=== PATIENT | female | born 1990 | race Caucasian/White ===

== ENCOUNTER 2017-03-20 20:59 | Emergency (ER) | payer OTHER ==
[2017-03-20 21:24] VITALS: BP 114/60; PULSE 67; TEMP 98.2; BMI 28.3
--- NOTE | 2017-03-20 22:15 | PDOC ---
History of Present Illness - General Chief Complaint: Pain Stated Complaint: PAIN, ACUTE Time Seen by Provider: 03/20/17 22:10 - History of Present Illness Initial Comments: 03/20/17 22:38 Patient is a 26 with no PMH who presents with abdominal cramping. The patient reports that she is 5-6 weeks but is unsure given that her menstrual period is irregular and she does not know her LMP. She does report positive test and had a beta quant earlier today at L&D that was 2700. She reports LLQ abdominal cramping beginning 2 days ago without relief prompting her presentation to the ED today at the recommendation of her frame opener physician. She states that she has not had this in the past with her previous pregnancies which were uncomplicated. She denies any abnormal vaginal discharge or bleeding and denies fevers, chills, SOB, chest pain , or changes with urination or bowel movements. Past History - Past Medical History Allergies/Adverse Reactions: Allergies Allergy/AdvReac Type Severity Reaction Status Date / Time shellfish derived Allergy Intermediate Hives Verified 03/20/17 21:19 seafood Allergy Intermediate Hives Uncoded 07/03/15 11:29 Home Medications: Ambulatory Orders Amoxicillin/Potassium Clav [Augmentin 875-125 Tablet] 1 each PO BID #14 tablet 07/03/15 Ibuprofen [Motrin -] 600 mg PO QID #30 tablet 07/03/15 Nitrofurantoin Macrocrystal [Nitrofurantoin] 100 mg PO BID #14 capsule 03/21/17 Asthma: No Cancer: No Cardiac Disorders: No Diabetes: No HTN: No Psychiatric Problems: Yes (ANXIETY) Suicide Attempt (Hx): No Seizures: No Thyroid Disease: No - Reproductive History (#): 1 Para: 1 Cervical CA: No Dysfunctional Uterine Bleeding: No Ectopic : No Endometrial CA: No Polycystic Ovaries: No Spontaneous : 1 - Immunization History Immunization Up to Date: No - Psycho/Social/Smoking Cessation Hx Anxiety: Yes Suicidal Ideation: No Smoking Status: Yes Smoking History: Never smoked Have you smoked in the past 12 months: No Number of Cigarettes Smoked Daily: 0 Information on smoking cessation initiated: No Hx Alcohol Use: No Drug/Substance Use Hx: No Substance Use Type: None Hx Substance Use Treatment: No Review of Systems - Review of Systems Constitutional: No: Chills, Fever Respiratory: No: Cough, Shortness of Breath Cardiac (ROS): No: Chest Pain, Lightheadedness, Palpitations ABD/GI: No: Constipated, Diarrhea, Nausea, Vomiting : No: Burning, Dysuria, Discharge Integumentary: No: Rash Neurological: No: Headache, Numbness, Tingling, Weakness *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 - Vital Signs Last Vital Signs Temp Pulse Resp BP Pulse Ox 98.2 F 67 20 114/60 100 03/20/17 21:20 03/20/17 21:20 03/20/17 21:20 03/20/17 21:20 03/20/17 21:20 - 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 Comments: 03/20/17 22:46 General Appearance: Nourished. No Apparent Distress Respiratory/Chest: Lungs Clear, Normal Breath Sounds. No Crackles, Rales, Rhonchi, Wheezing Cardiovascular: Regular Rhythm, Regular Rate. No Murmur, Gallop/S3, Gallop/S4 Female Pelvic Exam: normal external exam, cervical os closed, normal adnexa. No CMT, adnexal tenderness, vaginal bleeding Gastrointestinal/Abdominal: Normal Bowel Sounds, Soft, Mild LLQ tenderness to palpation on exam. No Guarding, Rebound Extremity: Normal Capillary Refill Integumentary: Normal Color, Dry, Warm Neurologic: Fully Oriented, Alert, Normal Mood/Affect, Normal Response ED Treatment Course - LABORATORY CBC & Chemistry Diagram: 03/20/17 22:48 03/20/17 22:48 Medical Decision Making - Medical Decision Making 03/20/17 22:47 Patient is a 26 with no PMH who presents with abdominal cramping. Differential includes but is not limited to: Round ligament pain, ovarian cyst, ectopic, torsion, UTI, metabolic derangement, infectious. Given the patient's normal exam and history, it is likely that her cramping is due to normal round ligament pain. However we will evaluate for other etiologies with a cbc, cmp, UA. Patient has had a type and screen in the past. She had a beta quant today that was 2700 so we will not send another and send her for a transvaginal US for evaluation. 03/21/17 00:12 CBC demonstrates an elevated wbc to 12.4. CMP is unremarkable. UA demonstrates a 3+ positive leuk esterase concerning for UTI. US is unremarkable for any abnormal pathology as read by our radiologist. Her symptoms are likely due to a UTI. We will send a prescription for nitroferatoin BID to treat and have her follow up with her construction project mgr or PCP. We discussed the results with the patient and the plan. The patient voiced understanding and is agreeable with the plan. *DC/Admit/Observation/Transfer Diagnosis at time of Disposition: UTI (urinary tract infection) Qualifiers: Urinary tract infection type: site unspecified Hematuria presence: without hematuria Qualified Code(s): N39.0 - Urinary tract infection, site not specified - Discharge Dispostion Disposition: HOME Condition at time of disposition: Good Admit: No - Prescriptions Prescriptions: Nitrofurantoin Macrocrystal [Nitrofurantoin] 100 mg PO BID #14 capsule - Patient Instructions Printed Discharge Instructions: DI for Urinary Tract Infection (UTI) Additional Instructions: Please return to the ER if you experience concerning or worsening symptoms including fevers or chills. Please follow up with your construction project mgr physician or primary care provider to discuss your ER visit. We have prescribed antibiotics for a urinary tract infection that you should take twice a day for 7 days.
--- NOTE | 2017-03-20 22:37 | PDOC ---
Attending Attestation - Resident Resident Name: Tejinder Hutchins - ED Attending Attestation I have performed the following: I have examined & evaluated the patient, The case was reviewed & discussed with the resident, I agree w/resident's findings & plan, Exceptions are as noted - HPI HPI: 03/21/17 00:08 26yo at 5 weeks presents for eval of lower abd cramping. No n/v/d. No vaginal bleeding, discharge, itching, burning, pain. Pt states urinary freq, but not dysuria. Pt denies f/c. No cp/sob. No cough. No rashes. States mild low back pain. No other complaints. Pt states cramping started 2 days ago. She had seen her SECURITY AMBASSADOR for this and is taking vitamins. No other complaints. 03/21/17 00:12 - Physicial Exam PE: 03/21/17 00:54 Gen: aaox3, nad Head: nc/at Heent: mmm, eomi neck: supple heart: reg lungs: cta abd: soft, nt/nd +bs Ext: no c/c/e - Medical Decision Making 03/20/17 22:28 I, Dr. Cammy Zambrano, DO, attest that this document has been prepared under my direction and personally reviewed by me in its entirety. I further attest, that it accurately reflects all work, treatment, procedures and medical decision -making performed by me. 03/21/17 00:10 26yo female with pelvic cramping, +preg -outpt hcg today was >2700 -type and screen was O+ -will check labs, ua, pelvic ob ultrasound to r/o ectopic. 03/21/17 00:11 re-eval: discussed labs results. will give abx for uti. recommended pt have repeat beta hcg in 48 hours. Recommended pt have repeat u/s in 1-2 weeks. Pt will follow up with her FIELD ASSESSOR. Discussed all reasons to return to the ED and need for follow up . Answered all questions.
[2017-03-20 22:59] LABS: EOSINOPHIL 2.4 % (0-4.5); MCH 32.3 pg (25.7-33.7); MCHC 34.5 g/dl (32.0-36.0); MEAN CELL VOLUME 93.6 fl (80-96); MEAN PLT VOLUME 9.3 fl (7.5-11.1); NEUTROPHILS 56.4 % (42.8-82.8); PLATELET COUNT 263 K/MM3 (134-434); RDW 12.5 % (11.6-15.6); WHITE BLOOD COUNT 12.4 K/mm3 (4.0-10.0)
[2017-03-20 23:09] LABS: URINE APPEARANCE SLCLOUDY; URINE BILIRUBIN NEGATIVE (NEGATIVE); URINE BLOOD NEGATIVE (NEGATIVE); URINE COLOR LTYELLOW; URINE GLUCOSE (UA) NEGATIVE (NEGATIVE); URINE KETONE NEGATIVE (NEGATIVE); URINE NITRITE NEGATIVE (NEGATIVE); URINE PROTEIN NEGATIVE (NEGATIVE); URINE UROBILINOGEN NEGATIVE mg/dL (0.2-1.0)
[2017-03-20 23:13] LABS: URINE LEUK ESTERASE 3+ (NEGATIVE)
[2017-03-20 23:15] LABS: CALCIUM OXALATE CRYSTALS RARE /hpf (NONE SEEN); URINE MUCUS RARE; URINE RBC 2 /hpf (0-3); URINE WBC 17 /hpf (3-5)
[2017-03-20 23:28] LABS: ALBUMIN 3.5 g/dl (3.4-5.0); ALK PHOS 83 U/L (45-117); ANION GAP 10 (8-16); BILIRUBIN,TOTAL 0.1 mg/dL (0.2-1.0); CALCIUM 8.5 mg/dL (8.5-10.1); CO2 26 mmol/L (21-32); CREATININE 0.5 mg/dL (0.55-1.02); GLUCOSE,RANDOM 90 mg/dL (74-106); SGOT/AST 12 U/L (15-37); SGPT/ALT 28 U/L (12-78); TOT PROT 6.5 g/dl (6.4-8.2)
== END 2017-03-21 00:18 | disposition home or self-care (01) ==
LOC: JER 20:59
DX: O23.41 Unspecified infection of urinary tract in pregnancy, first trimester (principal); Z3A.01 Less than 8 weeks gestation of pregnancy
CPT/HCPCS: 36415; 76817-TC; 80053; 81003; 81015; 84703; 85025; 99282-25

== ENCOUNTER 2017-11-14 09:37 | Inpatient (IN) | payer OTHER ==
[2017-11-14] MEDS ORDERED: AMPICILLIN SODIUM 2 GM VIAL ONE (10:18)
[2017-11-14] MEDS ORDERED: AMPICILLIN - 2 GM in SODIUM CHLORIDE 100 ML IVPB ONE (11:00)
[2017-11-14] MEDS ORDERED: DEXTROSE 5%-LACTATED RINGERS 1,000 ML IV SCH (11:00)
[2017-11-14 11:12] VITALS: BMI 35.4
[2017-11-14 11:22] LABS: BASO % 0.3 % (0-2.0); EOS % 0.5 % (0-4.5); HEMATOCRIT 35.7 % (32.4-45.2); HEMOGLOBIN 12.3 GM/dL (10.7-15.3); LYMPH % 13.6 % (8-40); MCH 32.9 pg (25.7-33.7); MCHC 34.5 g/dl (32.0-36.0); MEAN CELL VOLUME 95.1 fl (80-96); MONO % 5.1 % (3.8-10.2); NEUT % 80.5 % (42.8-82.8); PLATELET COUNT 195 K/MM3 (134-434); RBC 3.75 M/mm3 (3.60-5.2); RDW 12.8 % (11.6-15.6); WHITE BLOOD COUNT 12.4 K/mm3 (4.0-10.0)
[2017-11-14 11:50] LABS: ANION GAP 6 (8-16); BLOOD UREA NITROGEN 7 mg/dL (7-18); CALCIUM 8.8 mg/dL (8.5-10.1); CHLORIDE 106 mmol/L (98-107); CO2 26 mmol/L (21-32); CREATININE 0.6 mg/dL (0.55-1.02); GLUCOSE,RANDOM 117 mg/dL (74-106); POTASSIUM 3.9 mmol/L (3.5-5.1); SODIUM 138 mmol/L (136-145)
[2017-11-14 11:52] LABS: INR 0.96 (0.82-1.09); PROTHROMBIN TIME (PATIENT) 10.9 SEC (9.7-13.0)
--- NOTE | 2017-11-14 14:14 | HP ---
Past Medical History - Primary Care Physician PCP:: Niya Light - Admission Chief Complaint: 27yo P 1102 @ 38.4 wks with ctxns History of Present Illness: 1. GBS positive for Abx in labor 2. h/o PTL on Nicole last and this 3. Shell fish Allergy 4. Former Smoker History Source: Patient, Medical Record Limitations to Obtaining History: No Limitations - Past Medical History ...: 7 ...Para: 2 ...Term: 1 ...: 1 ...Spon : 1 ...Induced : 3 ...LMP: 02/18/17 ... Weeks Gestation by Dates: 38.2 ...EDC by Dates: 11/25/17 ...EDC by Sono: 11/18/17 - Past Surgical History Past Surgical History: Yes: None Hx Myomectomy: No Hx Transabdominal Cerclage: No Additional Surgical History: Nose septoplasty - Smoking History Smoking history: Never smoked Have you smoked in the past 12 months: No Aproximately how many cigarettes per day: 0 - Alcohol/Substance Use Hx Alcohol Use: No Home Medications - Allergies Allergies/Adverse Reactions: Allergies Allergy/AdvReac Type Severity Reaction Status Date / Time shellfish derived Allergy Intermediate Hives Verified 11/14/17 10:32 seafood Allergy Intermediate Hives Uncoded 11/14/17 10:32 - Home Medications Home Medications: Ambulatory Orders Vit/Iron Fum/Folic AC [ Tablet] 1 tab PO DAILY 11/14/17 Review of Systems - Review of Systems Constitutional: reports: No Symptoms Eyes: reports: No Symptoms HENT: reports: No Symptoms Neck: reports: No Symptoms Cardiovascular: reports: No Symptoms Respiratory: reports: No Symptoms Gastrointestinal: reports: No Symptoms Genitourinary: reports: No Symptoms Breasts: reports: No Symptoms Reported Musculoskeletal: reports: No Symptoms Integumentary: reports: No Symptoms Neurological: reports: No Symptoms Endocrine: reports: No Symptoms Hematology/Lymphatic: reports: No Symptoms Psychiatric: reports: No Symptoms 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 - Maternity Vital Signs: Vital Signs Temperature 98.5 F 11/14/17 14:00 Pulse Rate 76 11/14/17 14:00 Respiratory Rate 18 11/14/17 14:00 Blood Pressure 133/78 11/14/17 14:00 O2 Sat by Pulse Oximetry (%) Constitutional: Yes: Well Nourished Eyes: Yes: WNL, Conjunctiva Clear, EOM Intact HENT: Yes: WNL Neck: Yes: WNL, Supple, Trachea Midline Cardiovascular: Yes: WNL, Regular Rate and Rhythm Lungs: Clear to auscultation Breast(s): Yes: WNL - Abdominal Exam/OB Fundal Height: 38 (7lb) Number of Fetuses: Single Presentation: Vertex Contractions: Yes Regularity: Irregular (Q3-5min) Intensity: Mild/Mod Monitor Mode: External Heart Rate (range): 140 Heart Rate Location: Midline Category: I Accelerations: Uniform Decelerations: None - Vaginal Exam/OB Vaginal Bleediing: No Speculum Exam: No Dilatation (cm): 6-7 Effacement (%): 75 Amniotic Membrane Status: Intact Presentation: Vertex/Position Station: -3 - 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 Musculoskeletal: Yes: WNL Extremities: Yes: WNL Edema: No Integumentary: Yes: WNL ...Motor Strength: WNL Psychiatric: Yes: WNL - Labs Lab Results: CBC, BMP 11/14/17 11:00 11/14/17 11:00 Assessment/Plan 27yp P2 with advanced dilation, in early labor MF status reassuring Ampicillin 2gr x dose given and patient experienced itching, will deem Allergic to PCN Vancomycin ordered for GBS prophylaxis - 1gm slow drip She declines pain meds Will augment with AROM and slow Pitocin once Vancomycin is given
[2017-11-14] MEDS ORDERED: OXYTOCIN 20 UNITS in 0.9% NS 20 UNIT/1,000 ML INFUS.BAG IV ONE ×2 (14:19→20:14)
[2017-11-14] MEDS ORDERED: VANCOMYCIN 1,000 MG in DEXTROSE 5%-WATER - 250 ML IVPB SCH (14:30)
[2017-11-14] MEDS ORDERED: OXYTOCIN 15 UNITS/ LR 250 ML 15 UNIT/250 ML INFUS.BAG IVPB SCH (14:30)
[2017-11-14] MEDS ORDERED: VANCOMYCIN 1,000 MG in DEXTROSE 5%-WATER - 250 ML IVPB ONE (14:30)
[2017-11-14] MEDS ORDERED: OXYTOCIN 30 UNITS in 0.9% NS 30 UNIT/500 ML INFUS.BAG IVPB SCH (14:38)
--- NOTE | 2017-11-14 16:27 | PN ---
Progress Note, Labor Vaginal Exam #1 Labor Exam Date: 11/14/17 Labor Exam Time: 16:00 Heart Rate (range): 140's +accels, no decels Dilatation: 7 Effacement (%): 90 Amniotic Membrane Status: Intact Presentation: Vertex/Position Station: -3 (AROM performed, light meconium) Remarks: Overall well being reassured Category 1 FHR Patient told she can not have IV pain medication since too close to VD and due to meconium staining
[2017-11-14] MEDS ORDERED: PROMETHAZINE HCL 25 MG/1 ML VIAL ONE (16:29)
[2017-11-14] MEDS ORDERED: BUTORPHANOL TARTRATE 1 MG/ML VIAL ONE ×2 (16:29)
[2017-11-14] MEDS ORDERED: PROMETHAZINE HCL 25 MG/1 ML VIAL IVPB ONE (16:30)
[2017-11-14] MEDS ORDERED: BUTORPHANOL TARTRATE 1 MG/ML VIAL IVPB ONE (16:30)
[2017-11-14] MEDS ORDERED: BENZOCAINE 28 GM HEMORRHOIDAL OINTMENT TP PRN (19:54)
[2017-11-14] MEDS ORDERED: METHYLERGONOVINE MALEATE 0.2 MG/1 ML AMP IM PRN (19:54)
[2017-11-14] MEDS ORDERED: BISACODYL 10 MG SUPP.RECT RC PRN (19:54)
[2017-11-14] MEDS ORDERED: BENZOCAINE 20% 57 GM BOTTLE TP PRN (19:54)
[2017-11-14] MEDS ORDERED: WITCH HAZEL 50% (TUCKS) 40 PAD/JAR PAD TP PRN (19:54)
--- NOTE | 2017-11-14 19:54 | PN ---
Delivery - Delivery Vaginal Delivery: No Problems Type of Anesthesia: Local Episiotomy/Laceration: Perineal Extension/lac, 1st degree EBL (cc): 300 Delivery, Single - Stages of Labor Date 1st Stage Initiatied: 11/14/17 Time 1st Stage Initiated: 03:00 Date 2nd Stage Initiated: 11/14/17 Time 2nd Stage Initiated: 18:00 Date of Delivery: 11/14/17 Time of Delivery: 18:11 Time Placenta Delivered: 18:14 - Condition of Infant Stablehand/Sole Seamer Present: No Infant Gender: Female Weight: 7 lb 7 oz Position: Left, OA Total Hours ROM (Hrs/Mins): 2H4M - 1 Minute Total Score: 9 5 Minutes Total Score: 9 - Dorothy Feeding Plan Initial Plan: Elected not to breastfeed exclusively throughout hospitalization Remarks - Remarks Remarks: Uncomplicated vaginal delivery
[2017-11-14] MEDS ORDERED: D5W-LR W/ 20 UNITS OXYTOCIN 20 UNIT/1,000 ML INFUS.BAG IV SCH (20:00)
[2017-11-14] MEDS: IBUPROFEN 600 MG TABLET (FP) PO PRN (21:12)
[2017-11-14] MEDS: ACETAMINOPHEN 325 MG TABLET (FP) PO PRN (21:15)
[2017-11-15] MEDS: IBUPROFEN 600 MG TABLET (FP) PO PRN ×6 (01:04→23:21)
[2017-11-15] MEDS: ACETAMINOPHEN 325 MG TABLET (FP) PO PRN ×6 (01:05→23:22)
--- NOTE | 2017-11-15 06:51 | PN ---
Post Progress Note - Subjective Subjective: No complains, voids, ambulates, tolerates PO Post Day: 1 Type of Delivery: Vital Signs: Vital Signs Temperature 98 F 11/15/17 05:58 Pulse Rate 64 11/15/17 05:58 Respiratory Rate 18 11/15/17 05:58 Blood Pressure 122/64 11/15/17 05:58 O2 Sat by Pulse Oximetry (%) Breast Exam: Yes: Soft Uterus: Yes: Fundus Firm Abdomen/GI: Yes: Abdomen soft Lochia: Yes: Rubra Lochia, amount: Small Extremities: Yes: Calves non-tender Perineum: Yes: Intact Activity: Ambulating - Labs Labs: CBC WBC 12.4 K/mm3 (4.0-10.0) H 11/14/17 11:00 RBC 3.75 M/mm3 (3.60-5.2) 11/14/17 11:00 Hgb 12.3 GM/dL (10.7-15.3) 11/14/17 11:00 Hct 35.7 % (32.4-45.2) 11/14/17 11:00 MCV 95.1 fl (80-96) 11/14/17 11:00 MCH 32.9 pg (25.7-33.7) 11/14/17 11:00 MCHC 34.5 g/dl (32.0-36.0) 11/14/17 11:00 RDW 12.8 % (11.6-15.6) 11/14/17 11:00 Plt Count 195 K/MM3 (134-434) 11/14/17 11:00 MPV 10.0 fl (7.5-11.1) 11/14/17 11:00 Neutrophils % 80.5 % (42.8-82.8) D 11/14/17 11:00 Lymphocytes % 13.6 % (8-40) D 11/14/17 11:00 Monocytes % 5.1 % (3.8-10.2) 11/14/17 11:00 Eosinophils % 0.5 % (0-4.5) D 11/14/17 11:00 Basophils % 0.3 % (0-2.0) 11/14/17 11:00 Assessment/Plan 27yp P3 s/p VSS, Afebrile Doing well continue routine PP care Follow CBC Plan to D/C in am
[2017-11-15] MEDS: FERROUS SO4 325 MG TABLET (FP) PO SCH ×2 (08:20→17:04)
[2017-11-15 08:47] LABS: BASO % 0.4 % (0-2.0); EOS % 0.2 % (0-4.5); HEMATOCRIT 35.4 % (32.4-45.2); HEMOGLOBIN 12.1 GM/dL (10.7-15.3); LYMPH % 12.1 % (8-40); MCH 32.9 pg (25.7-33.7); MCHC 34.2 g/dl (32.0-36.0); MEAN CELL VOLUME 96.1 fl (80-96); MEAN PLT VOLUME 10.2 fl (7.5-11.1); NEUT % 81.3 % (42.8-82.8); PLATELET COUNT 210 K/MM3 (134-434); RBC 3.68 M/mm3 (3.60-5.2); RDW 12.7 % (11.6-15.6)
[2017-11-15] MEDS: PRENATAL VITAMINS W/ FOLIC ACID TABLET (FP) PO SCH (09:42)
--- NOTE | 2017-11-15 17:57 | DS ---
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 Vital Signs: Vital Signs Temperature 98.1 F 11/15/17 17:43 Pulse Rate 64 11/15/17 17:43 Respiratory Rate 18 11/15/17 17:43 Blood Pressure 124/77 11/15/17 17:43 O2 Sat by Pulse Oximetry (%) Constitutional: Yes: Well Nourished Eyes: Yes: WNL, Conjunctiva Clear, EOM Intact HENT: Yes: WNL, Atraumatic, Normocephalic Neck: Yes: WNL, Supple, Trachea Midline Cardiovascular: Yes: WNL, Regular Rate and Rhythm Respiratory: Yes: WNL, Regular, CTA Bilaterally Gastrointestinal: Yes: WNL, Normal Bowel Sounds, Soft ...Rectal Exam: Yes: WNL Renal/: Yes: WNL Pelvis: Yes: WNL External Genitalia: Yes: Normal Vaginal Exam: Yes: Normal ....Post : Yes: Uterus firm, Uterus non-tender Breast(s): Yes: WNL Musculoskeletal: Yes: WNL Edema: No Integumentary: Yes: WNL Neurological: Yes: WNL, Alert, Oriented ...Motor Strength: WNL Psychiatric: Yes: WNL, Alert, Oriented Labs: CBC, BMP 11/15/17 07:45 11/14/17 11:00 Delivery - Delivery Vaginal Delivery: No Problems Type of Anesthesia: Local Episiotomy/Laceration: Perineal Extension/lac, 1st degree EBL (cc): 300 Delivery, Single - Stages of Labor Date 1st Stage Initiatied: 11/14/17 Time 1st Stage Initiated: 03:00 Date 2nd Stage Initiated: 11/14/17 Time 2nd Stage Initiated: 18:00 Date of Delivery: 11/14/17 Time of Delivery: 18:11 Time Placenta Delivered: 18:14 - Condition of Stereotype Caster/Sr. Manager Corporate Communications Present: No Infant Gender: Female Weight: 7 lb 7 oz Position: Left, OA Total Hours ROM (Hrs/Mins): 2H4M - 1 Minute Total Score: 9 5 Minutes Total Score: 9 - Feeding Plan Initial Plan: Elected not to breastfeed exclusively throughout hospitalization Discharge Summary Reason For Visit: LABOR Procedures: Principal: normal spontaneous vaginal delivery Condition: Good - Instructions Diet, Activity, Other Instructions: Physical activity Resume your normal everyday activity as tolerated no heavy lifting or exercise until seen by your surgeon. You may walk unlimited rowena of and climb stairs. You may resume driving the car when you feel safe and comfortable behind the wheel. No sexual activity as instructed. Wound care If you have a bandage, leave it on, and keep dry for 48-72 hours. After that time discard the outer bandage. If they are tapes on the skin under the out of bandage leave them in place. They will peel off in the next 7 to 10 days. Do Not Peel them off. You may shower the day after surgery. If there are tapes present on the skin, you may shower over them. Diet There are no dietary restrictions. Eat healthy, high-fiber foods. Drink 6 to 8 glasses of liquid each day. This will assist in keeping your bowels are regular. Pain management You may take Tylenol or acetaminophen or Ibuprofen (for example, Motrin, Advil etc.) from my pain prescription medication is ordered should be taken as prescribed for moderate to severe pain. Call MD for any of the following: Severe pain not relieved by medication Fever of 101 or higher Excessive bleeding or drainage on dressing Inability to urinate Disposition: HOME - Home Medications Comprehensive Discharge Medication List: Ambulatory Orders Vit/Iron Fum/Folic AC [ Tablet] 1 tab PO DAILY 11/14/17
[2017-11-15] MEDS ORDERED: SENNOSIDES/DOCUSATE COMBO (SENNA PLUS) TABLET (UD) PO PRN (22:00)
[2017-11-16] MEDS: IBUPROFEN 600 MG TABLET (FP) PO PRN ×2 (06:45→10:21)
[2017-11-16] MEDS: ACETAMINOPHEN 325 MG TABLET (FP) PO PRN ×2 (06:46→10:21)
[2017-11-16 08:21] LABS: BASO % 0.4 % (0-2.0); EOS % 1.3 % (0-4.5); HEMATOCRIT 32.9 % (32.4-45.2); HEMOGLOBIN 11.3 GM/dL (10.7-15.3); LYMPH % 9.4 % (8-40); MCH 32.9 pg (25.7-33.7); MCHC 34.3 g/dl (32.0-36.0); MEAN PLT VOLUME 9.9 fl (7.5-11.1); MONO % 5.5 % (3.8-10.2); NEUT % 83.4 % (42.8-82.8); PLATELET COUNT 170 K/MM3 (134-434); RBC 3.42 M/mm3 (3.60-5.2); RDW 13.1 % (11.6-15.6); WHITE BLOOD COUNT 9.6 K/mm3 (4.0-10.0)
--- NOTE | 2017-11-16 08:27 | PN ---
Post Progress Note - Subjective Subjective: No complains Post Day: 2 Type of Delivery: Vital Signs: Vital Signs Temperature 98.2 F 11/15/17 21:39 Pulse Rate 66 11/15/17 21:39 Respiratory Rate 20 11/15/17 21:39 Blood Pressure 126/69 11/15/17 21:39 O2 Sat by Pulse Oximetry (%) Breast Exam: Yes: Soft Uterus: Yes: Fundus Firm Lochia: Yes: Rubra Lochia, amount: Small Extremities: Yes: Calves non-tender Perineum: Yes: Intact Activity: Ambulating - Labs Labs: CBC WBC 9.6 K/mm3 (4.0-10.0) D 11/16/17 07:45 RBC 3.42 M/mm3 (3.60-5.2) L 11/16/17 07:45 Hgb 11.3 GM/dL (10.7-15.3) 11/16/17 07:45 Hct 32.9 % (32.4-45.2) 11/16/17 07:45 MCV 96.0 fl (80-96) 11/16/17 07:45 MCH 32.9 pg (25.7-33.7) 11/16/17 07:45 MCHC 34.3 g/dl (32.0-36.0) 11/16/17 07:45 RDW 13.1 % (11.6-15.6) 11/16/17 07:45 Plt Count 170 K/MM3 (134-434) 11/16/17 07:45 MPV 9.9 fl (7.5-11.1) 11/16/17 07:45 Neutrophils % 83.4 % (42.8-82.8) H 11/16/17 07:45 Lymphocytes % 9.4 % (8-40) D 11/16/17 07:45 Monocytes % 5.5 % (3.8-10.2) 11/16/17 07:45 Eosinophils % 1.3 % (0-4.5) D 11/16/17 07:45 Basophils % 0.4 % (0-2.0) 11/16/17 07:45 Assessment/Plan 29yp P3 s/p VSS, Afebrile Doing well WBC decreasing appropriately NPV x 6 wks RTO 6wks
[2017-11-16] MEDS: PRENATAL VITAMINS W/ FOLIC ACID TABLET (FP) PO SCH (09:15)
[2017-11-16] MEDS: FERROUS SO4 325 MG TABLET (FP) PO SCH (09:15)
[2017-11-16 09:28] VITALS: BP 119/58; PULSE 69; TEMP 98.4
== END 2017-11-16 11:39 | disposition home or self-care (01) | DRG 560 ==
LOC: JDEL 09:37 → JLDR 10:10 → J3W 20:40
PROVIDERS: ADMIT Obstetrics & Gynecology; ATTEND Obstetrics & Gynecology
PROC: 0HQ9XZZ Repair Perineum Skin, External Approach (ICD-10-PCS; principal; 2017-11-14)
PROC: 10E0XZZ Delivery of Products of Conception, External Approach (ICD-10-PCS; 2017-11-14)
DX: O99.824 Streptococcus B carrier state complicating childbirth (principal); O70.0 First degree perineal laceration during delivery; Z3A.38 38 weeks gestation of pregnancy; Z37.0 Single live birth; Z87.891 Personal history of nicotine dependence; Z91.013 Allergy to seafood
CPT/HCPCS: 36415; 59409; 80048; 85025; 85610; 85730; 86593; 86850; 86900; 86901; 87389

== ENCOUNTER 2018-02-08 23:46 | Emergency (ER) | payer OTHER ==
[2018-02-09] MEDS ORDERED: MAG HYDROX/AL HYDROX/SIMETH 30 ML UNIT-DOSE CUP PO ONE (01:50)
[2018-02-09] MEDS ORDERED: PANTOPRAZOLE 40 MG TABLET (FP) PO ONE (01:50)
--- NOTE | 2018-02-09 01:55 | PDOC ---
Attending Attestation - HPI HPI: 02/09/18 03:10 The patient is a 27 year old female with no significant past medical history presents to the emergency department with abdominal pain. The patient presents with epigastric pain and mild lower abdominal pain, burning in character, accompanied with burping, chills and nausea, denies vomiting. The patient states shes currently on control. The patient reports having a baby recently. Denies being . Denies dysuria or hematuria. LMP: 3 weeks ago. Allergies: Penicillins, shellfish and seafood. Surgical history: None reported Social history: Current everyday smoker. Denies the use of alcohol or recreational drugs. PCP: None reported. - Physicial Exam PE: 02/09/18 03:24 GENERAL: Awake, alert, and fully oriented, in no acute distress HEAD: No signs of trauma EYES: PERRLA, EOMI, sclera anicteric, conjunctiva clear ENT: Auricles normal inspection, hearing grossly normal, nares patent, oropharynx clear without exudates. Moist mucosa NECK: Normal ROM, supple, no lymphadenopathy, JVD, or masses LUNGS: Breath sounds equal, clear to auscultation bilaterally. No wheezes, and no crackles HEART: Regular rate and rhythm, normal S1 and S2, no murmurs, rubs or gallops ABDOMEN: (+) Minimum tender in the L. abdomen. No Flank pain. Soft, normoactive bowel sounds. No guarding, no rebound. No masses EXTREMITIES: Normal range of motion, no edema. No clubbing or cyanosis. No cords, erythema, or tenderness NEUROLOGICAL: Cranial nerves II through XII grossly intact. Normal speech. SKIN: Warm, Dry, normal turgor, no rashes or lesions noted. - Medical Decision Making 02/09/18 03:24 Documentation prepared by Harini Gill, acting as medical program specialist for Keyanna Baxter MD. <Harini Gill - Last Filed: 02/09/18 03:24> - Resident Resident Name: Fareed Almaraz - ED Attending Attestation I have performed the following: I have examined & evaluated the patient, The case was reviewed & discussed with the resident, I agree w/resident's findings & plan - HPI HPI: 02/09/18 01:55 Pt primarily comes with abd pain/gastritis and secondarily complains of lower abd pain. She had a baby 2 months ago.>> Since that time, she has been sexually active, but she is on generic ortho tricyclen. Incidentally pt is also a smoker. We warned her of DVT danger. We will check her UA and UCG. Pt can follow with her sales office administrator to evaluate her ovaries. - Medical Decision Making 02/09/18 05:44 Pt has gastritis and lower abd pain. Trace leukocytes. I will treat her as a UTI; pt advised to follow with PMD. <Keyanna Baxter - Last Filed: 02/09/18 05:45>
--- NOTE | 2018-02-09 02:05 | PDOC ---
History of Present Illness <Keyanna Baxter - Last Filed: 02/09/18 02:29> - General History Source: Patient Exam Limitations: No Limitations - History of Present Illness Initial Comments: 02/09/18 02:00 Patient is 27F with no significant medical history here today complaining of epigastric pain that started today. She describes the pain as a burning and states that she's been burping a lot. Denies fevers, endorses chills. Endorses nausea, denies vomiting. Patient denies prior abdominal surgery. LMP 3 weeks ago. Patient currently smoking and on control. Endorses lower abdominal pain, but says that this is mild. Denies flank pain, dysuria, frequency. <Fareed Almaraz - Last Filed: 02/09/18 02:48> - General Stated Complaint: PAIN Time Seen by Provider: 02/09/18 01:49 Past History <Keyanna Baxter - Last Filed: 02/09/18 02:29> - Past Medical History Asthma: No Cancer: No Cardiac Disorders: No Diabetes: No HTN: No Psychiatric Problems: Yes (ANXIETY) Seizures: No Thyroid Disease: No - Reproductive History (#): 1 Para: 1 Cervical CA: No Dysfunctional Uterine Bleeding: No Ectopic : No Endometrial CA: No Polycystic Ovaries: No Spontaneous : 1 - Immunization History Immunization Up to Date: No - Suicide/Smoking/Psychosocial Hx Smoking Status: Yes Smoking History: Never smoked Have you smoked in the past 12 months: No Number of Cigarettes Smoked Daily: 0 Hx Alcohol Use: No Drug/Substance Use Hx: No Substance Use Type: None Hx Substance Use Treatment: No <Fareed Almaraz - Last Filed: 02/09/18 02:48> - Past Medical History Allergies/Adverse Reactions: Allergies Allergy/AdvReac Type Severity Reaction Status Date / Time Penicillins Allergy Intermediate Difficulty Verified 02/09/18 02:11 Breathing shellfish derived Allergy Intermediate Hives Verified 02/09/18 02:11 seafood Allergy Intermediate Hives Uncoded 02/09/18 02:11 Home Medications: Ambulatory Orders Vit/Iron Fum/Folic AC [ Tablet] 1 tab PO DAILY 11/14/17 Nitrofurantoin Monohyd/M-Cryst [Macrobid -] 100 mg PO BID #14 capsule 02/09/18 Review of Systems - Review of Systems Comments:: 02/09/18 02:02 GENERAL/CONSTITUTIONAL: No fever +chills. No weakness. HEAD, EYES, EARS, NOSE AND THROAT: No change in vision. No sore throat. CARDIOVASCULAR: No chest pain or shortness of breath RESPIRATORY: No cough, wheezing, or hemoptysis. GASTROINTESTINAL: +nausea. No vomiting, diarrhea or constipation. GENITOURINARY: No dysuria, frequency, or change in urination. MUSCULOSKELETAL: No joint or muscle swelling or pain. No neck or back pain. SKIN: No rash NEUROLOGIC: No headache, vertigo, loss of consciousness, or change in strength/ sensation. ENDOCRINE: No increased thirst. No abnormal weight change HEMATOLOGIC/LYMPHATIC: No anemia, easy bleeding, or history of blood clots. ALLERGIC/IMMUNOLOGIC: No hives or skin allergy. <Fareed Almaraz - Last Filed: 02/09/18 02:48> *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 - Vital Signs Last Vital Signs Temp Pulse Resp BP Pulse Ox 97.4 F L 57 L 18 118/50 100 02/09/18 00:04 02/09/18 00:04 02/09/18 00:04 02/09/18 00:04 02/09/18 00:04 <Keyanna Baxter - Last Filed: 02/09/18 02:29> - 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 Comments: 02/09/18 02:03 GENERAL: Awake, alert, and fully oriented, in no acute distress HEAD: No signs of trauma, normocephalic, atraumatic EYES: PERRLA, EOMI, sclera anicteric, conjunctiva clear ENT: Auricles normal inspection, hearing grossly normal, nares patent, oropharynx clear without exudates. Moist mucosa NECK: Normal ROM, supple, no lymphadenopathy, JVD, or masses LUNGS: No distress, speaks full sentences, clear to auscultation bilaterally HEART: Regular rate and rhythm, normal S1 and S2, no murmurs, rubs or gallops, peripheral pulses normal and equal bilaterally. ABDOMEN: Soft, nontender, normoactive bowel sounds. No guarding, no rebound. No masses EXTREMITIES: Normal inspection, Normal range of motion, no edema. No clubbing or cyanosis. NEUROLOGICAL: Cranial nerves II through XII grossly intact. Normal speech, normal gait, no focal sensorimotor deficits SKIN: Warm, Dry, normal turgor, no rashes or lesions noted. <Fareed Almaraz - Last Filed: 02/09/18 02:48> ED Treatment Course - ADDITIONAL ORDERS Additional order review: Laboratory Results 02/09/18 01:59 Urine Color Ltyellow Urine Appearance Clear Urine pH 5.0 Ur Specific Wittmann 1.020 Urine Protein Negative Urine Glucose (UA) Negative Urine Ketones Negative Urine Blood Negative Urine Nitrite Negative Urine Bilirubin Negative Urine Urobilinogen Negative Ur Leukocyte Esterase Trace Urine WBC (Auto) 4 Urine RBC (Auto) <1 Ur Epithelial Cells Rare Urine Mucus Rare Urine HCG, Qual Negative - Medications Given in the ED: ED Medications Discontinued Medications Generic Name Dose Route Start Last Admin Trade Name Freq PRN Reason Stop Dose Admin Al Hydroxide/Mg Hydroxide 30 ml 02/09/18 01:50 02/09/18 02:00 Mylanta Oral Suspension - PO 02/09/18 01:51 30 ml ONCE ONE Administration Pantoprazole Sodium 40 mg 02/09/18 01:50 02/09/18 02:00 Protonix - PO 02/09/18 01:51 40 mg ONCE ONE Administration <Keyanna Baxter - Last Filed: 02/09/18 02:29> Medical Decision Making - Medical Decision Making 02/09/18 02:03 Patient is 27F with no significant medical history here today with epigastric abdominal pain. Vital signs normal and stable. DDx heavily weighted towards GERD /Gastritis. Will treat with protonix, maalox. Will evaluate with ua/upreg. Will likely discharge. Counseled to not smoke and take control. 02/09/18 02:47 UA, Upreg negative. Discharged home. <Fareed Almaraz - Last Filed: 02/09/18 02:48> *DC/Admit/Observation/Transfer - Discharge Dispostion Decision to Admit order: No <Keyanna Baxter - Last Filed: 02/09/18 02:29> - Discharge Dispostion Decision to Admit order: No <Fareed Almaraz - Last Filed: 02/09/18 02:48> Diagnosis at time of Disposition: GERD (gastroesophageal reflux disease), UTI (urinary tract infection) - Discharge Dispostion Disposition: HOME Condition at time of disposition: Improved - Prescriptions Prescriptions: Nitrofurantoin Monohyd/M-Cryst [Macrobid -] 100 mg PO BID #14 capsule - Patient Instructions Printed Discharge Instructions: Urinary Tract Infection, Gastritis
[2018-02-09 02:09] LABS: URINE APPEARANCE CLEAR; URINE BILIRUBIN NEGATIVE (<2.0 mg/dL); URINE COLOR LTYELLOW; URINE GLUCOSE (UA) NEGATIVE (NEGATIVE); URINE KETONE NEGATIVE (NEGATIVE); URINE LEUK ESTERASE TRACE (NEGATIVE); URINE NITRITE NEGATIVE (NEGATIVE); URINE PROTEIN NEGATIVE (NEGATIVE); URINE UROBILINOGEN NEGATIVE mg/dL (0.2-1.0)
[2018-02-09 02:11] VITALS: BP 118/50; PULSE 57; TEMP 97.4; BMI 31.5
[2018-02-09] MEDS ORDERED: MAG HYDROX/AL HYDROX/SIMETH 30 ML UNIT-DOSE CUP ONE (02:17)
[2018-02-09] MEDS ORDERED: PANTOPRAZOLE 40 MG TABLET (FP) ONE (02:17)
[2018-02-09 02:22] LABS: EPI CELLS RARE /HPF (FEW); URINE MUCUS RARE
[2018-02-09 02:26] LABS: HCG,QUALITATIVE URINE NEGATIVE
[2018-02-09] MEDS ORDERED: NITROFURANTOIN MACROCRYSTAL 50 MG CAPSULE (FP) PO SCH (02:30)
[2018-02-09] MEDS ORDERED: NITROFURANTOIN MACROCRYSTAL 50 MG CAPSULE (FP) ONE (02:36)
== END 2018-02-09 03:02 | disposition home or self-care (01) ==
LOC: JER 23:46
DX: K29.70 Gastritis, unspecified, without bleeding (principal); N39.0 Urinary tract infection, site not specified; Z88.0 Allergy status to penicillin; Z91.013 Allergy to seafood
CPT/HCPCS: 81003; 81015; 84703; 99281-25

== ENCOUNTER 2018-04-11 22:31 | Emergency (ER) | payer OTHER ==
[2018-04-11 22:38] VITALS: BP 115/57; PULSE 74; TEMP 97.9; BMI 30.1
--- NOTE | 2018-04-11 23:36 | PDOC ---
History of Present Illness - General Chief Complaint: Sore Throat Stated Complaint: THROAT/HEAD/BODY PAIN Time Seen by Provider: 04/11/18 23:15 History Source: Patient Exam Limitations: No Limitations - History of Present Illness Initial Comments: 04/12/18 00:23 Best Contact: PCP: clinic [facility] Pmhx: 0 Pshx:0 Allergies: NKDA FH:0 Social Hx: Cigarettes/ 0 Alcohol/ social Drugs/0 LMP:03/22/2018 28-year-old female presents to the emergency department complaining of sore throat described as 3/10 intermittent soreness without exacerbating or alleviating factors x2d along with dysuria, urinary frequency/urgency times one day. Patient denies fever, chills, nausea/vomiting, headache, dizziness, lightheadedness, facial pain, rhinorrhea, earaches, nasal congestion, neck pain/ stiffness, back pains, chest pain, shortness of breath, abdominal pains, flank pains, hematuria. Past History - Past Medical History Allergies/Adverse Reactions: Allergies Allergy/AdvReac Type Severity Reaction Status Date / Time Penicillins Allergy Intermediate Difficulty Verified 04/11/18 22:36 Breathing shellfish derived Allergy Intermediate Hives Verified 04/11/18 22:36 seafood Allergy Intermediate Hives Uncoded 04/11/18 22:36 Home Medications: Ambulatory Orders Vit/Iron Fum/Folic AC [ Tablet] 1 tab PO DAILY 11/14/17 Nitrofurantoin Monohyd/M-Cryst [Macrobid -] 100 mg PO BID #14 capsule 02/09/18 Nitrofurantoin Monohyd/M-Cryst [Macrobid -] 100 mg PO BID #14 capsule 04/12/18 Asthma: No Cancer: No Cardiac Disorders: No COPD: No Diabetes: No HTN: No Psychiatric Problems: Yes (ANXIETY) Seizures: No Thyroid Disease: No - Reproductive History (#): 1 Para: 1 Cervical CA: No Dysfunctional Uterine Bleeding: No Ectopic : No Endometrial CA: No Polycystic Ovaries: No Spontaneous : 1 - Immunization History Immunization Up to Date: No - Suicide/Smoking/Psychosocial Hx Smoking Status: Yes Smoking History: Never smoked Have you smoked in the past 12 months: No Number of Cigarettes Smoked Daily: 0 Hx Alcohol Use: No Drug/Substance Use Hx: No Substance Use Type: None Hx Substance Use Treatment: No Review of Systems - Review of Systems Able to Perform ROS?: Yes Comments:: 04/12/18 00:24 CONSTITUTIONAL: Absent: fever, chills, diaphoresis, generalized weakness, malaise, loss of appetite HEENT: Absent: rhinorrhea, nasal congestion, throat pain, throat swelling, difficulty swallowing, mouth swelling, ear pain, eye pain, visual Changes CARDIOVASCULAR: Absent: chest pain, loss of consciousness, palpitations, irregular heart rate, peripheral edema RESPIRATORY: Absent: cough, shortness of breath, dyspnea with exertion, orthopnea, wheezing, stridor, hemoptysis GASTROINTESTINAL: Absent: abdominal pain, abdominal distension, nausea, vomiting, diarrhea, constipation, melena, hematochezia GENITOURINARY: +dysuria, frequency, urgency Absent: hesitancy, hematuria, flank pain, genital pain MUSCULOSKELETAL: Absent: myalgia, arthralgia, joint swelling SKIN: Absent: rash, itching, pallor Is the patient limited Mauritanian proficient: No *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 - Vital Signs Last Vital Signs Temp Pulse Resp BP Pulse Ox 97.9 F 74 18 115/57 L 97 04/11/18 22:34 04/11/18 22:34 04/11/18 22:34 04/11/18 22:34 04/11/18 22:34 - 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 Comments: 04/12/18 00:24 GENERAL: Well developed, well nourished. Awake and alert. No acute distress. HEENT: Normocephalic, atraumatic. PERRLA, EOMI. No conjunctival pallor. Sclera are non- icteric. Moist mucous membranes. Oropharynx is clear. NECK: Supple. Full ROM. No JVD. Carotid pulses 2+ and symmetric, without bruits. No thyromegaly. No lymphadenopathy. CARDIOVASCULAR: Regular rate and rhythm. No murmurs, rubs, or gallops. Distal pulses are 2+ and symmetric. PULMONARY: No evidence of respiratory distress. Lungs clear to auscultation bilaterally. No wheezing, rales or rhonchi. ABDOMINAL: Soft. Non-tender. Non-distended. No rebound or guarding. No organomegaly. Normoactive bowel sounds. MUSCULOSKELETAL Normal range of motion at all joints. No bony deformities or tenderness. No CVA tenderness. EXTREMITIES: No cyanosis. No clubbing. No edema. No calf tenderness. SKIN: Warm and dry. Normal capillary refill. No rashes. No jaundice. *DC/Admit/Observation/Transfer Diagnosis at time of Disposition: UTI (urinary tract infection) Qualifiers: Urinary tract infection type: acute cystitis Hematuria presence: without hematuria Qualified Code(s): N30.00 - Acute cystitis without hematuria Pharyngitis Qualifiers: Pharyngitis/tonsillitis etiology: unspecified etiology Qualified Code(s): J02.9 - Acute pharyngitis, unspecified - Discharge Dispostion Condition at time of disposition: Stable Decision to Admit order: No - Prescriptions Prescriptions: Nitrofurantoin Monohyd/M-Cryst [Macrobid -] 100 mg PO BID #14 capsule - Referrals Referrals: Demetrice Benavides [Primary Care Provider] - - Patient Instructions Printed Discharge Instructions: DI for Viral Pharyngitis, DI for Urinary Tract Infection (UTI) Additional Instructions: Pelvic rest Increase 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
[2018-04-12 00:04] LABS: URINE APPEARANCE CLEAR; URINE BILIRUBIN NEGATIVE (<2.0 mg/dL); URINE COLOR LTYELLOW; URINE GLUCOSE (UA) NEGATIVE (NEGATIVE); URINE KETONE NEGATIVE (NEGATIVE); URINE NITRITE NEGATIVE (NEGATIVE); URINE PROTEIN NEGATIVE (NEGATIVE); URINE UROBILINOGEN NEGATIVE mg/dL (0.2-1.0)
[2018-04-12 00:05] LABS: URINE LEUK ESTERASE 2+ (NEGATIVE)
[2018-04-12 00:07] LABS: EPI CELLS FEW /HPF (FEW); URINE BACTERIA RARE /hpf (NONE SEEN); URINE MUCUS RARE
== END 2018-04-12 00:54 | disposition home or self-care (01) ==
LOC: JER 22:31
DX: N39.0 Urinary tract infection, site not specified (principal); J02.9 Acute pharyngitis, unspecified; F41.9 Anxiety disorder, unspecified; Z88.0 Allergy status to penicillin; Z91.013 Allergy to seafood
CPT/HCPCS: 81003; 81015; 87070; 87086; 87430; 99281-25

== ENCOUNTER 2019-02-02 22:48 | Emergency (ER) | payer OTHER ==
[2019-02-02 22:54] VITALS: TEMP 98.1; BMI 25.7
--- NOTE | 2019-02-03 00:02 | PDOC ---
*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 - Vital Signs Last Vital Signs Temp Pulse Resp BP Pulse Ox 98.1 F 66 20 118/73 99 02/02/19 22:50 02/02/19 22:50 02/02/19 22:50 02/02/19 22:50 02/02/19 22:50 ED Treatment Course - LABORATORY CBC & Chemistry Diagram: 02/03/19 00:45 02/03/19 00:45 Medical Decision Making - Medical Decision Making 02/03/19 00:02 Patient seen by the advanced practice provider under my direct supervision. Ancillary testing reviewed as necessary. I agree with plan as outlined by the advanced practice provider. *DC/Admit/Observation/Transfer Diagnosis at time of Disposition: Headache Qualifiers: Headache type: tension-type Headache chronicity pattern: acute headache Intractability: not intractable Qualified Code(s): G44.209 - Tension-type headache, unspecified, not intractable - Referrals Referrals: Giovany Moore MD [Staff Physician] - Call tomorrow Demetrice Benavides [Primary Care Provider] - - Patient Instructions Printed Discharge Instructions: Migraine -- Adult Additional Instructions: drink plenty of fluids - Post Discharge Activity Forms/Work/School Notes: Back to Work
--- NOTE | 2019-02-03 00:07 | PDOC ---
History of Present Illness - General Chief Complaint: Headache Stated Complaint: HEADACHE Time Seen by Provider: 02/02/19 23:57 History Source: Patient - History of Present Illness Initial Comments: 02/03/19 00:26 28 year old female c/o headache x 10 days. " i think i have a sinus infections. patient reports that she took ibuprofen at home with no relief. reports slight dizziness pmhx: migraines lmp: 01/19/2019 Past History - Past Medical History Allergies/Adverse Reactions: Allergies Allergy/AdvReac Type Severity Reaction Status Date / Time Penicillins Allergy Intermediate Difficulty Verified 04/11/18 22:36 Breathing shellfish derived Allergy Intermediate Hives Verified 04/11/18 22:36 seafood Allergy Intermediate Hives Uncoded 04/11/18 22:36 Asthma: No Cancer: No Cardiac Disorders: No COPD: No Diabetes: No HTN: No Psychiatric Problems: Yes (ANXIETY) Seizures: No Thyroid Disease: No - Reproductive History (#): 1 Para: 1 Cervical CA: No Dysfunctional Uterine Bleeding: No Ectopic : No Endometrial CA: No Polycystic Ovaries: No Spontaneous : 1 - Immunization History Immunization Up to Date: No - Suicide/Smoking/Psychosocial Hx Smoking Status: Yes Smoking History: Never smoked Have you smoked in the past 12 months: No Number of Cigarettes Smoked Daily: 0 Hx Alcohol Use: No Drug/Substance Use Hx: No Substance Use Type: None Hx Substance Use Treatment: No Review of Systems - Review of Systems Able to Perform ROS?: Yes Is the patient limited Macanese proficient: No Constitutional: No: Symptoms Reported, See HPI, Chills, Diaphoresis, Fever, Loss of Appetite, Malaise, Night Sweats, Weakness, Weight Stable, Unintentional Wgt. Loss, Unexplained wgt Loss, Other ABD/GI: No: Symptoms Reported, See HPI, Abdominal Distended, Abd. Pain w/ defecation, Blood Streaked Bowels, Constipated, Diarrhea, Difficulty Swallowing , Nausea, Poor Appetite, Poor Fluid Intake, Rectal Bleeding, Vomiting, Indigestion, Abdominal cramping, Tarry Stools, Other Integumentary: No: Symptoms Reported, See HPI, Bruising, Change in Color, Change in Hair/Nails, Dryness, Erythema, Flushing, Lesions, Lumps, Pallor, Pruritus, Rash, Sweating, Other Neurological: Yes: Headache, Dizziness. No: Symptoms reported, See HPI, Numbness, Paresthesia, Pre-Existing Deficit, Seizure, Tingling, Tremors, Weakness, Unsteady Gait, Ataxia, Other *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 - Vital Signs Last Vital Signs Temp Pulse Resp BP Pulse Ox 98.1 F 66 20 118/73 99 02/02/19 22:50 02/02/19 22:50 02/02/19 22:50 02/02/19 22:50 02/02/19 22:50 - 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 General Appearance: Yes: Appropriately Dressed HEENT: positive: Normal ENT Inspection. negative: Nasal Congestion, Sinus Tenderness Respiratory/Chest: positive: Lungs Clear, Normal Breath Sounds Cardiovascular: positive: Regular Rhythm, Regular Rate Gastrointestinal/Abdominal: positive: Normal Bowel Sounds, Soft. 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 advised to follow up with neurology as soon as possible. ct head: wnl *DC/Admit/Observation/Transfer Diagnosis at time of Disposition: Headache Qualifiers: Headache type: tension-type Headache chronicity pattern: acute headache Intractability: not intractable Qualified Code(s): G44.209 - Tension-type headache, unspecified, not intractable - Discharge Dispostion Disposition: HOME - Referrals Referrals: Demetrice Benavides [Primary Care Provider] - Giovany Moore MD [Staff Physician] - Call tomorrow - Patient Instructions Printed Discharge Instructions: Migraine -- Adult Additional Instructions: drink plenty of fluids - Post Discharge Activity Forms/Work/School Notes: Back to Work
[2019-02-03] MEDS ORDERED: SODIUM CHLORIDE 1,000 ML IV STA (00:32)
[2019-02-03] MEDS ORDERED: METOCLOPRAMIDE HCL INJECTION 10 MG/2 ML VIAL IVPB ONE (00:32)
[2019-02-03] MEDS ORDERED: METOCLOPRAMIDE HCL INJECTION 10 MG/2 ML VIAL ONE (00:37)
[2019-02-03] MEDS ORDERED: ACETAMINOPHEN 1000 MG/100 ML VIAL (NON FORMULARY) IVPB ONE (00:58)
[2019-02-03 01:04] LABS: BASO % 0.9 % (0-2.0); EOS % 2.8 % (0-4.5); HEMATOCRIT 37.8 % (32.4-45.2); HEMOGLOBIN 12.8 GM/dL (10.7-15.3); LYMPH % 39.1 % (8-40); MCH 32.3 pg (25.7-33.7); MCHC 33.9 g/dl (32.0-36.0); MEAN CELL VOLUME 95.4 fl (80-96); MEAN PLT VOLUME 9.7 fl (7.5-11.1); MONO % 5.4 % (3.8-10.2); NEUT % 51.8 % (42.8-82.8); PLATELET COUNT 266 K/MM3 (134-434); RBC 3.96 M/mm3 (3.60-5.2); RDW 12.3 % (11.6-15.6); WHITE BLOOD COUNT 10.5 K/mm3 (4.0-10.0)
[2019-02-03 01:31] LABS: ALBUMIN 3.7 g/dl (3.4-5.0); BILIRUBIN,TOTAL 0.2 mg/dL (0.2-1); BLOOD UREA NITROGEN 15.8 mg/dL (7-18); CREATININE 0.8 mg/dL (0.55-1.3); TOT PROT 6.9 g/dl (6.4-8.2)
[2019-02-03] MEDS ORDERED: ACETAMINOPHEN INJECTION 100 ML IVPB ONE (01:36)
[2019-02-03 03:29] VITALS: BP 104/62; PULSE 52
== END 2019-02-03 03:29 | disposition home or self-care (01) ==
LOC: JER 22:48
PROC: 3E033NZ Introduction of Analgesics, Hypnotics, Sedatives into Peripheral Vein, Percutaneous Approach (ICD-10-PCS; principal; 2019-02-02)
PROC: 3E0337Z Introduction of Electrolytic and Water Balance Substance into Peripheral Vein, Percutaneous Approach (ICD-10-PCS; 2019-02-02)
PROC: 3E033GC Introduction of Other Therapeutic Substance into Peripheral Vein, Percutaneous Approach (ICD-10-PCS; 2019-02-02)
DX: G44.209 Tension-type headache, unspecified, not intractable (principal); Z88.0 Allergy status to penicillin; Z91.013 Allergy to seafood
CPT/HCPCS: 36415; 70450-TC; 80053; 84703; 85025; 96361; 96374; 96375; 99283-25; J0131; J7030

== ENCOUNTER 2021-03-22 18:18 | Emergency (ER) | payer OTHER ==
[2021-03-22 18:32] VITALS: BP 110/77; PULSE 74; TEMP 97.8; BMI 28.8
== END 2021-03-22 19:21 | disposition home or self-care (01) ==
LOC: JER 18:18
DX: J02.9 Acute pharyngitis, unspecified (principal)
CPT/HCPCS: 87880; 99283-25; C9803; U0003; U0005

== ENCOUNTER 2021-10-23 17:25 | Emergency (ER) | payer OTHER ==
[2021-10-23 17:46] VITALS: BP 119/78; PULSE 84; TEMP 97.8; BMI 31.5
[2021-10-23 19:05] LABS: EPI CELLS >36 /uL (0-25.1); HCG,QUALITATIVE URINE Negative; HYALINE CASTS 6 /uL (0-3.1); PH,URINE 5.5 (5.0-8.0); URINE APPEARANCE CLOUDY; URINE BACTERIA 1481 /uL (0-1359); URINE BILIRUBIN NEGATIVE (NEGATIVE); URINE COLOR YELLOW; URINE GLUCOSE (UA) NEGATIVE (NEGATIVE); URINE KETONE 1+ (NEGATIVE); URINE LEUK ESTERASE 1+ (NEGATIVE); URINE NITRITE NEGATIVE (NEGATIVE); URINE PROTEIN NEGATIVE (NEGATIVE); URINE RBC 33 /uL (0-23.9); URINE UROBILINOGEN 0.2 mg/dL (0.2-1.0); URINE WBC 196 /uL (0-25.8)
[2021-10-23] MEDS ORDERED: ONDANSETRON 4 MG/2 ML VIAL IVPB ONE (19:17)
[2021-10-23] MEDS ORDERED: SODIUM CHLORIDE 0.9% 500 ML INFUS.BAG IV ONE (19:17)
[2021-10-23] MEDS ORDERED: ACETAMINOPHEN 1000 MG/100 ML BAG IVPB ONE (19:17)
[2021-10-23 19:20] LABS: BASO % 0.7 % (0-2.0); EOS % 1.7 % (0-4.5); HEMATOCRIT 38.1 % (32.4-45.2); HEMOGLOBIN 12.9 GM/dL (10.7-15.3); LYMPH % 16.5 % (8-40); MCH 31.4 pg (25.7-33.7); MCHC 33.9 g/dl (32.0-36.0); MEAN CELL VOLUME 92.5 fl (80-96); MEAN PLT VOLUME 9.9 fl (7.5-11.1); MONO % 6.6 % (3.8-10.2); NEUT % 74.5 % (42.8-82.8); PLATELET COUNT 257 10^3/uL (134-434); RBC 4.12 M/mm3 (3.60-5.2); RDW 12.3 % (11.6-15.6); WHITE BLOOD COUNT 8.2 K/mm3 (4.0-10.0)
[2021-10-23] MEDS ORDERED: ACETAMINOPHEN INJECTION 100 ML IVPB ONE (19:24)
[2021-10-23 19:37] LABS: CALCIUM 8.3 mg/dL (8.5-10.1)
[2021-10-23 19:38] LABS: BLOOD UREA NITROGEN 12.1 mg/dL (7-18)
[2021-10-23 19:41] LABS: CREATININE 0.7 mg/dL (0.55-1.3)
[2021-10-23 19:43] LABS: BILIRUBIN,TOTAL 0.2 mg/dL (0.2-1); TOT PROT 6.6 g/dl (6.4-8.2)
== END 2021-10-23 22:39 | disposition home or self-care (01) ==
LOC: JER 17:25
PROC: 3E033GC Introduction of Other Therapeutic Substance into Peripheral Vein, Percutaneous Approach (ICD-10-PCS; principal; 2021-10-23)
DX: K59.00 Constipation, unspecified (principal)
CPT/HCPCS: 36415; 74019-TC-FY; 74177-TC; 80053; 81003; 84703; 85025; 87086; 99285-25; Q9967

== ENCOUNTER 2022-09-16 04:33 | Day surgery (SDC) | payer OTHER ==
[2022-09-11 12:45] VITALS: BMI 30.1
[2022-09-16] MEDS ORDERED: oxyCODONE HCL 5 MG TABLET PO PRN (10:36)
[2022-09-16] MEDS ORDERED: ACETAMINOPHEN 325 MG TABLET (FP) PO PRN (10:36)
[2022-09-16] MEDS ORDERED: PROPOFOL 20 ML ONE ×2 (10:43→11:14)
[2022-09-16] MEDS ORDERED: DEXAMETHASONE SOD PHOSPHATE 4 MG/1 ML VIAL ONE (10:43)
[2022-09-16] MEDS ORDERED: MIDAZOLAM HCL 2 MG/2 ML SINGLE DOSE VIAL ONE (10:43)
[2022-09-16] MEDS ORDERED: KETOROLAC TROMETHAMINE 30 MG/1 ML VIAL ONE (10:43)
[2022-09-16] MEDS ORDERED: ONDANSETRON 4 MG/2 ML VIAL ONE (10:43)
[2022-09-16] MEDS ORDERED: LACTATED RINGERS SOLUTION 1,000 ML IV SCH (10:45)
[2022-09-16] MEDS ORDERED: ceFAZolin SODIUM 1 GM VIAL IVPB ONE (11:00)
[2022-09-16] MEDS ORDERED: oxyCODONE HCL 5 MG TABLET ONE (12:57)
[2022-09-16 14:34] VITALS: BP 132/75; PULSE 58; RESP 20; TEMP 97.6
[2022-09-17] MEDS ORDERED: BCP PO SCH (10:00)
== END 2022-09-16 14:22 | disposition home or self-care (01) ==
LOC: JASU-SURG 04:33
PROVIDERS: ATTEND Obstetrics & Gynecology
PROC: 0UB98ZZ Excision of Uterus, Via Natural or Artificial Opening Endoscopic (ICD-10-PCS; principal; 2022-09-16 10:00)
DX: N92.1 Excessive and frequent menstruation with irregular cycle (principal); N84.0 Polyp of corpus uteri; N93.0 Postcoital and contact bleeding
CPT/HCPCS: 81025; 88305-TC; 94760

== ENCOUNTER 2023-07-07 23:20 | Emergency (ER) | payer OTHER ==
[2023-07-07 23:30] VITALS: BP 132/87; PULSE 79; RESP 18; TEMP 98.6; BMI 30.1
[2023-07-08] MEDS ORDERED: KETOROLAC TROMETHAMINE 60 MG/2 ML VIAL ONE (00:09)
[2023-07-08] MEDS ORDERED: ALBUTEROL SO4 2.5/IPRATROPIUM 0.5 INH SOL 3 ML VIAL.NEB. NEB ONE (00:09)
[2023-07-08] MEDS ORDERED: IBUPROFEN 600 MG TABLET (FP) PO ONE ×2 (00:10→00:43)
[2023-07-08] MEDS ORDERED: ALBUTEROL SO4 0.083% IH SOL 2.5 MG/3 ML VIAL.NEB. NEB ONE (00:10)
[2023-07-08 00:34] LABS: THROAT:GRP A STREP NOT DETECTED (NOTDETECTED)
== END 2023-07-08 01:40 | disposition home or self-care (01) ==
LOC: JER 23:20
PROC: 3E0F7GC Introduction of Other Therapeutic Substance into Respiratory Tract, Via Natural or Artificial Opening (ICD-10-PCS; principal; 2023-07-08)
DX: R05.9 Cough, unspecified (principal); R50.9 Fever, unspecified; R53.83 Other fatigue; R09.81 Nasal congestion; J10.1 Influenza due to other identified influenza virus with other respiratory manifestations; J20.9 Acute bronchitis, unspecified; Z20.822 Contact with and (suspected) exposure to COVID-19
CPT/HCPCS: 0241U-QW; 71046-TC-FY; 87651; 99284-25